=== PATIENT | male | born 1985 | race Hispanic/Latino ===

== ENCOUNTER 2018-04-27 12:12 | Emergency (ER) | payer OTHER ==
[2018-04-27] MEDS ORDERED: TETANUS/DIPHTHERIA TOXOID [ADULT] 0.5 ML VIAL IM ONE (12:38)
[2018-04-27] MEDS ORDERED: CEFAZOLIN SODIUM 1 GM VIAL ONE (12:38)
[2018-04-27] MEDS ORDERED: IBUPROFEN 600 MG TABLET ONE (12:38)
== END 2018-04-27 14:01 | disposition home or self-care (01) ==
LOC: EDH 12:12
DX: S62.632A Displaced fracture of distal phalanx of right middle finger, initial encounter for closed fracture (principal); S62.634A Displaced fracture of distal phalanx of right ring finger, initial encounter for closed fracture; W23.0XXA Caught, crushed, jammed, or pinched between moving objects, initial encounter; Y93.89 Activity, other specified; Y92.69 Other specified industrial and construction area as the place of occurrence of the external cause; Y99.8 Other external cause status
CPT/HCPCS: 29130 ×2; 73130; 90471; 90714; 96372; 99283; J0690